=== PATIENT | female | born 1955 | race Caucasian/White ===

== ENCOUNTER 2017-02-18 19:29 | Emergency (ER) | payer SELFPAY ==
[~2017-02-18] VITALS: Ht 170.2 cm; Wt 57.7 kg
[~2017-02-18 19:29] MED LIST: CLIN150 PO; LORTA5 PO
[2017-02-18 19:33] VITALS: BP 147/93; PULSE 93; RESP 18; TEMP 98.7; O2SAT 95
[2017-02-18 19:40] VITALS: BP 147/93; PULSE 88; RESP 18; O2SAT 96
[2017-02-18] MEDS ORDERED: MEDR4PAK PO (19:56)
[2017-02-18] MEDS ORDERED: ALBU1AER5 INH (19:56)
[2017-02-18] MEDS ORDERED: DOXY100C PO (19:56)
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
--- NOTE | 2017-02-18 20:02 | RADRPT ---
EXAM DATE/TIME: 02/18/2017 19:56 [facility] COMPARISON: No previous studies available for comparison. INDICATIONS : Syncopal episode today. MEDICAL HISTORY : Hypertension. SURGICAL HISTORY : None. ENCOUNTER: Initial ACUITY: 1 day PAIN SCORE: Non-responsive. LOCATION: Bilateral chest FINDINGS: There is a calcified granuloma within the right apex. No focal infiltrate is noted. No pulmonary grecia a is noted. The heart is normal. CONCLUSION: No acute cardiopulmonary disease. Calcified granuloma within the right apex. Mayo Shahid MD on February 18, 2017 at 20:00 Board Certified Radiologist. This report was verified electronically.
[2017-02-18 20:24] LABS: AUTOMATED NEUTROPHIL # 3.2 TH/MM3 (1.8-7.7); BASOPHIL % 0.5 % (0.0-2.0); BLOOD, URINE NEG (NEG); EOSINOPHIL # 0.2 TH/MM3 (0-0.4); EOSINOPHIL % 2.6 % (0.0-4.0); GLUCOSE,URINE NEG (NEG); HEMATOCRIT 45.2 % (35.0-46.0); KETONE, URINE NEG (NEG); LYMPH % 57.5 % (9.0-44.0); LYMPHOCYTE # 5.4 TH/MM3 (1.0-4.8); MEAN CELL VOLUME 98.8 FL (80.0-100.0); MEAN CORPUSCULAR HEMOGLOBIN 34.8 PG (27.0-34.0); MEAN CORPUSCULAR HGB CONC 35.2 % (32.0-36.0); MONO % 5.9 % (0.0-8.0); NEUT % 33.5 % (16.0-70.0); NITRITE,URINE NEG (NEG); PLATELET COUNT 328 TH/MM3 (150-450); RED BLOOD COUNT 4.57 MIL/MM3 (4.00-5.30); RED CELL DISTRIBUTION WIDTH 12.6 % (11.6-17.2); URINE COLOR COLORLESS (YELLW/STRAW); WHITE BLOOD COUNT 9.4 TH/MM3 (4.0-11.0)
[2017-02-18 20:25] LABS: COMMENT (UR) CULT NOT INDICATED; CULTURE IF INDICATED CULT NOT INDICATED
[2017-02-18 20:28] LABS: HEMO FLAGS AUTO DIFF
[2017-02-18 20:31] LABS: AMPHETAMINE, URINE NEG (NEG); BARBITURATES, URINE NEG (NEG); COCAINE, URINE NEG (NEG)
[2017-02-18 20:37] LABS: ANION GAP 10 MEQ/L (5-15); AST (GOT) 87 U/L (15-37); BICARBONATE 25.2 MEQ/L (21.0-32.0); BLOOD UREA NITROGEN 3 MG/DL (7-18); CHLORIDE 103 MEQ/L (98-107); GLOMERULAR FILTRATION RATE 103 ML/MIN (>89); POTASSIUM 3.1 MEQ/L (3.5-5.1); SODIUM (NA) 138 MEQ/L (136-145)
[2017-02-18 20:40] LABS: ALKALINE PHOSPHATASE 95 U/L (45-117); ALT (GPT) 75 U/L (10-53); TOTAL BILIRUBIN ADULT 0.4 MG/DL (0.2-1.0)
[2017-02-18] MEDS ORDERED: POTASSIUM CHLORIDE 25 MEQ EFFERVESCENT TAB PO ONE (20:45)
[2017-02-18] MEDS ORDERED: DOXYCYCLINE HYCLATE 100 MG CAP PO ONE (20:45)
[2017-02-18 21:44] LABS: EOSINOPHILS 1 % (0-4); NEUTROPHIL # MANUAL DIFF 2.9 TH/MM3 (1.8-7.7); POLYS (SEG NEUTROPHILS) 31 % (16-70); WBC DIFF SAMPLE 100
[2017-02-18 21:46] LABS: PLATELET ESTIMATE SMEAR NORMAL (NORMAL); PLATELET MORPHOLOGY NORMAL (NORMAL); SCAN/DIFF FINAL DIFF MANUAL
== END 2017-02-19 00:28 | disposition home or self-care (01) ==
LOC: NEPC 19:29
DX: J44.1 Chronic obstructive pulmonary disease with (acute) exacerbation (principal); J01.00 Acute maxillary sinusitis, unspecified; F10.120 Alcohol abuse with intoxication, uncomplicated; H66.91 Otitis media, unspecified, right ear
CPT/HCPCS: 71010; 80053; 80307; 81001; 85007; 85027; 86140; 87040; 99284